=== PATIENT | female | born 1990 | race Two or more races ===

== ENCOUNTER 2022-12-29 11:08 | Emergency (ER) | payer OTHER ==
[~2022-12-29] VITALS: Ht 167.6 cm; Wt 68.0 kg
[2022-12-29 12:30] LABS: HEMOGLOBIN 12.3 g/dL (12.0-15.00); MEAN CELL VOLUME 91.5 fL (80.00-100.00); MEAN CORPUSCULAR HEMOGLOBIN 31.3 pg (27.00-32.0); MEAN CORPUSCULAR HGB CONC 34.2 g/dl (32.0-36.0); PLATELET COUNT 235 K/uL (150-450); RED BLOOD COUNT 3.94 M/uL (4.00-6.00); RED CELL DISTRIBUTION WIDTH 12.9 % (11.5-14.5)
== END 2022-12-29 14:08 | disposition home or self-care (01) ==
LOC: ER 11:08
PROVIDERS: Emergency Medicine
DX: O26.859 Spotting complicating pregnancy, unspecified trimester (principal); O36.80X0 Pregnancy with inconclusive fetal viability, not applicable or unspecified; O20.9 Hemorrhage in early pregnancy, unspecified; Z3A.01 Less than 8 weeks gestation of pregnancy

== ENCOUNTER 2023-06-30 13:31 | Outpatient (CLI) | payer OTHER | END 2023-06-30 13:34 | disposition home or self-care (01) | LOC: PRENATAL 13:31 | PROVIDERS: ATTEND Obstetrics & Gynecology Maternal & Fetal Medicine | DX: O36.80X0 Pregnancy with inconclusive fetal viability, not applicable or unspecified (principal); Z36.82 Encounter for antenatal screening for nuchal translucency; Z36.9 Encounter for antenatal screening, unspecified; Z3A.13 13 weeks gestation of pregnancy ==

== ENCOUNTER 2023-11-16 10:01 | Outpatient (CLI) | payer OTHER | END 2023-11-16 10:02 | disposition home or self-care (01) | LOC: PRENATAL 10:01 | PROVIDERS: ATTEND Obstetrics & Gynecology Maternal & Fetal Medicine | DX: O26.843 Uterine size-date discrepancy, third trimester (principal); O36.8130 Decreased fetal movements, third trimester, not applicable or unspecified; Z3A.33 33 weeks gestation of pregnancy ==